=== PATIENT | female | born 1955 | race Caucasian/White ===

== ENCOUNTER 2017-11-22 15:20 | Emergency (ER) | payer OTHER ==
[~2017-11-22] VITALS: Ht 157.5 cm; Wt 58.1 kg
[~2017-11-22 15:20] MED LIST: ABILIFY 5 MG TAB5 M1; ABILIFY 5 MG TAB5 M1 PO; ABILIFY10 MG PO; ACETAMINOPHEN-1 EAC1 PO; ADDERALL 30 MG30 MG PO; ADVAIR 250-501 EACH; AFEDITAB CR60 M1 PO; ALENDRONATE SOD70 MG PO; AMBEREN; ANTIVERT25 MG PO; ASPIR 8181 M1 PO; ASPIR 8181 MG PO; ASPIRIN EC81 M1; AVELOX 400 MG400 MG PO; AZITHROMYCIN 2250 MG PO; BACTRIM DS TAB1 EACH PO; BACTROBAN CREAM30 G1 TOP; BACTROBAN22 GM TP; CALADRYL LOTIO180 ML TP; CALCIUM 500+D1 EAC2 PO; CALCIUM MAGNES1 EAC2 PO; CELEBREX 200 M200 M1 PO; CENTRUM SILVER1 EAC4 PO; CIPRO500 MG PO; CYMBALTA20 MG; CYMBALTA20 MG PO; CYMBALTA30 MG PO; CYMBALTA60 MG; DESYREL100 MG; DEXTROAMPHETAMIN5 M2 PO; DOXYCYCLINE 10100 MG PO; ERYTHROMYCIN E3.5 G1 OPHTHALMIC; FLAGYL500 MG PO; FLEXERIL PO; GABAPENTIN 100100 MG PO; GINKGO BILOBA120 MG; HYDROCODON-ACE1 EAC8 PO; HYDROXYZINE HCL25 M1 PO; HYDROXYZINE HCL25 M2 PO; LEVAQUIN 500 M500 M2 PO; LEXAPRO 10 MG T10 M1 PO; MEDROLDOSEPACK PO; MELATONIN3 MG PO; MOBIC7.5 M1 PO; MUCINEX600 MG PO; MYRBETRIQ50 MG PO; NAPROSYN500 MG PO; NASONEX17 GM; NEURONTIN 300M300 M2 PO; NORCO 5-325 TA1 EAC1 PO; NORCO 5-325 TA1 EACH PO; NORVASC5 MG PO; OMEPRAZOLE 20 M20 M1 PO; ONDANSETRON HCL4 M2 PO; PERCOCET 5-3251 EACH; PERCOCET 5-3251 EACH PO; PREDNISONE 10 M10 MG PO; PREDNISONE50 MG PO; PRILOSEC 20 MG20 MG PO; PRILOSEC40 MG; PROAIR HFA8.5 GM IH; PROAIR HFA8.5 GM INH; PROCARDIA XL60 MG PO; SINGULAIR 10 MG10 M1 PO; SODIUM CHLORIDE50 M3 IV; SPIRIVA INH; STRESS FORMULA1 EAC5 PO; SUPER B COMPLE1 EAC2 PO; TRAMADOL 50 MG50 MG PO; TRAZODONE HCL100 MG PO; VENTOLIN HFA INH8 GM; VITAMIN B-12250 MCG PO; VITAMIN B-12500 MCG PO; VITAMIN B122500 MCG PO; VITAMIN D-32000 UNIT; VITAMIN D3400 UNIT PO; WELCHOL 625 MG625 M1 PO; WELCHOL 625 MG625 MG PO; XANAX PO; XANAX1 MG PO; ZANTAC 150MG T150 M1; ZOFRAN4 MG PO; [UNRECOGNIZED DRUG - OTHER]
[2017-11-22 15:52] LABS: ABSOLUTE BASOPHILS 0.1 thou/uL (0.0-0.2); ABSOLUTE EOSINOPHILS 0.1 thou/uL (0.0-0.7); ABSOLUTE LYMPHOCYTES 3.3 thou/uL (0.8-5.3); ABSOLUTE MONOCYTES 0.6 thou/uL (0.0-1.2); ABSOLUTE NEUTROPHILS 7.1 thou/uL (1.6-8.1); BASOPHILS 0.6 %; HEMATOCRIT 42.2 % (37.0-47.0); LYMPHOCYTES 29.2 %; MCH 28.2 pg (26.0-34.0); MCHC 33.3 g/dL (28.0-37.0); MCV 84.7 fL (80.0-100.0); MONOCYTES 5.6 %; MPV 8.1 fl. (7.2-11.1); NUCLEATED RBCS 0 /100WBC; PLATELET COUNT* 452 thou/uL (150-400); POLYS 63.6 %; RBC 4.99 mil/uL (4.20-5.00); RDW-CV 15.4 % (10.5-14.5); WBC 11.1 thou/uL (4.0-11.0)
[2017-11-22 15:56] LABS: APTT 25.7 Seconds (25.0-31.3); PROTIME 10.1 Seconds (9.20-11.50)
[2017-11-22 16:10] LABS: ANION GAP 14 mmol/L (7-16); BUN 14 mg/dL (7-18); CALCIUM 9.3 mg/dL (8.5-10.1); CHLORIDE 101 mmol/L (98-107); CO2 26 mmol/L (21-32); CREATININE 1.3 mg/dL (0.6-1.3); GLUCOSE 91 mg/dL (70-99); POTASSIUM 3.8 mmol/L (3.5-5.1); SODIUM 141 mmol/L (136-145)
[2017-11-22 16:26] LABS: ALBUMIN 3.8 g/dL (3.4-5.0); ALKALINE PHOSPHATASE 100 U/L (46-116); CK-MB MASS 0.7 ng/mL (<0.5-3.6); LIPASE 226 U/L (73-393); MAGNESIUM 2.1 mg/dL (1.8-2.4); NT-PRO BRAIN NAT PEPTIDE 120 pg/mL (<300); SGOT 17 U/L (15-37); SGPT 23 U/L (30-65); TOTAL BILIRUBIN 0.3 mg/dL (<0.1-1.0); TOTAL PROTEIN 7.8 g/dL (6.4-8.2); TROPONIN-I LEVEL <0.06 ng/mL (<0.06)
[2017-11-22 18:28] VITALS: BP 136/57
--- NOTE | 2017-11-23 12:06 | EKG ---
[place] [address] ELECTROCARDIOGRAM REPORT Name: CARLSONFARSHAD SARA Room: [facility]#: [id number] Admission: 11/22/17 Attend Phys: Discharge: 11/22/17 Date of : 53 Report #: [id number] THIS REPORT FOR: //name// [facility] ED Test Date: 2017-11-22 Test Time: 15:26:21 Pat Name: FARSHAD CARLSON Department: Room: Gender: F Insulation Estimator: ANN MARIE : 1955 Requested By: Man Lee Order Number: [id number] MD: Rafael Mitchell Measurements Intervals [place] Rate: 58 P: 70 [place]: 150 QRS: 55 QRSD: 92 T: 55 QT: 417 QTc: 410 Interpretive Statements Sinus rhythm Anterior infarct, old Compared to ECG 03/30/2017 12:21:30 No significant changes Electronically Signed On 11-23-2017 12:06:24 CDT by Rafael Mitchell [email or web address] <ELECTRONICALLY SIGNED> By: Elena Mitchell MD, [facility] 11/23/17 1206 152 Elena Mitchell MD, [facility] /EPI
--- NOTE | 2017-11-23 12:07 | EKG ---
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: ANN MARIE : 1955 Requested By: Man Lee Order Number: [id number] MD: Rafael Mitchell Measurements Intervals [place] Rate: 76 P: 53 [place]: 163 QRS: 22 QRSD: 84 T: 56 QT: 387 QTc: 436 Interpretive Statements Sinus rhythm Probable anterior infarct, old Compared to ECG 03/30/2017 12:21:30 No significant changes Electronically Signed On 11-23-2017 12:07:20 CDT by Rafael Mitchell [email or web address] <ELECTRONICALLY SIGNED> By: Elena Mitchell MD, [facility] 11/23/17 1207 16 16 Elena Mitchell MD, [facility] /EPI
== END 2017-11-22 18:28 | disposition home or self-care (01) ==
LOC: M.ERS 15:20
PROVIDERS: Family Medicine
DX: R07.89 Other chest pain (principal); G89.29 Other chronic pain; M54.9 Dorsalgia, unspecified; J44.9 Chronic obstructive pulmonary disease, unspecified; K21.9 Gastro-esophageal reflux disease without esophagitis; M19.90 Unspecified osteoarthritis, unspecified site; I10 Essential (primary) hypertension; F31.9 Bipolar disorder, unspecified; M79.7 Fibromyalgia; F17.210 Nicotine dependence, cigarettes, uncomplicated; Z90.49 Acquired absence of other specified parts of digestive tract; Z88.1 Allergy status to other antibiotic agents; Z88.8 Allergy status to other drugs, medicaments and biological substances

== ENCOUNTER 2019-06-20 03:55 | Emergency (ER) | payer OTHER ==
[~2019-06-20] VITALS: Ht 157.5 cm; Wt 56.7 kg
[2019-06-20 04:33] LABS: URINE BILIRUBIN NEGATIVE (Negative); URINE BLOOD NEGATIVE (Negative); URINE CLARITY CLEAR; URINE COLOR YELLOW; URINE GLUCOSE-RANDOM NEGATIVE (Negative); URINE KETONES NEGATIVE (Negative); URINE LEUKOCYTES-REFLEX 1+ (Negative); URINE NITRITE-REFLEX NEGATIVE (Negative); URINE PROTEIN TRACE (Negative); URINE SPECIFIC GRAVITY 1.015 (1.005-1.030); URINE UROBILINOGEN 0.2 E.U./dl (0.2-1.0)
[2019-06-20 04:43] LABS: ABSOLUTE BASOPHILS 0.1 thou/uL (0.0-0.2); ABSOLUTE EOSINOPHILS 0.7 thou/uL (0.0-0.7); ABSOLUTE LYMPHOCYTES 2.3 thou/uL (0.8-5.3); ABSOLUTE MONOCYTES 0.6 thou/uL (0.0-1.2); ABSOLUTE NEUTROPHILS 5.9 thou/uL (1.6-8.1); BASOPHILS 0.6 %; EOSINOPHILS 7.4 %; HEMATOCRIT 34.7 % (37.0-47.0); HEMOGLOBIN 11.4 gm/dL (12.0-15.0); MCH 27.8 pg (26.0-34.0); MCHC 32.8 g/dL (28.0-37.0); MCV 84.9 fL (80.0-100.0); MONOCYTES 6.7 %; MPV 7.2 fl. (7.2-11.1); NUCLEATED RBCS 0 /100WBC; PLATELET COUNT* 337 thou/uL (150-400); POLYS 61.3 %; RBC 4.09 mil/uL (4.20-5.00); RDW-CV 16.6 % (10.5-14.5); WBC 9.7 thou/uL (4.0-11.0)
[2019-06-20 04:53] LABS: CALCIUM 8.5 mg/dL (8.5-10.1); CREATININE 1.2 mg/dL (0.6-1.3); POTASSIUM 4.1 mmol/L (3.5-5.1)
[2019-06-20 04:58] LABS: APTT 30.1 Seconds (25.0-31.3); PROTIME 10.5 Seconds (9.20-11.50)
[2019-06-20 04:58] LABS: BACTERIA-REFLEX >30 Many /HPF (None Seen); SQUAMOUS 0-3 Few /LPF (0-3); URINE RBC 3-10 Few /HPF (0-2); URINE WBC-REFLEX >25 Many /HPF (0-5); WBC CLUMPS Moderate (None Seen)
[2019-06-20 04:59] LABS: CRYSTALS None Seen /LPF (None Seen); FINE GRANULAR CASTS 0-3 Few /LPF (None Seen); HYALINE CASTS 0-3 Few /LPF (None Seen); MUCUS 4-6 Moderate strn/LPF (None Seen)
[2019-06-20 05:05] LABS: TOTAL BILIRUBIN 0.5 mg/dL (<0.1-1.0); TOTAL PROTEIN 7.2 g/dL (6.4-8.2)
[2019-06-20] MEDS ORDERED: MACROBID 100 M100 M1 PO (06:28)
[2019-06-20 06:35] VITALS: BP 122/54
--- NOTE | 2019-06-20 10:39 | EKG ---
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 : 1955 Requested By: Man Lee Order Number: [id number] MD: Deandre Dumont Measurements Intervals [place] Rate: 77 P: 62 [place]: 38 QRS: 12 QRSD: 93 T: 29 QT: 407 QTc: 461 Interpretive Statements Sinus rhythm Short [place] interval Anterior infarct, old Compared to ECG 11/22/2017 17:17:19 Short [place] interval now present Myocardial infarct finding still present Electronically Signed On 06-20-2019 10:38:47 SALES MANAGER by Deandre Dumont [email or web address] <ELECTRONICALLY SIGNED> By: Deandre Dumont MD, [facility] 06/20/19 1038 0411 0411 Deandre Dumont MD, FAC /EPI
== END 2019-06-20 06:35 | disposition home or self-care (01) ==
LOC: M.ERS 03:55
PROVIDERS: Family Medicine
DX: R53.1 Weakness (principal); N39.0 Urinary tract infection, site not specified; F17.210 Nicotine dependence, cigarettes, uncomplicated; G89.29 Other chronic pain; F12.10 Cannabis abuse, uncomplicated; J44.9 Chronic obstructive pulmonary disease, unspecified; M79.7 Fibromyalgia; F32.9 Major depressive disorder, single episode, unspecified; R73.9 Hyperglycemia, unspecified; I10 Essential (primary) hypertension; M19.90 Unspecified osteoarthritis, unspecified site; I95.9 Hypotension, unspecified; Z88.1 Allergy status to other antibiotic agents; Z88.8 Allergy status to other drugs, medicaments and biological substances; Z90.49 Acquired absence of other specified parts of digestive tract; Z79.899 Other long term (current) drug therapy; Z91.81 History of falling

== ENCOUNTER 2019-06-21 16:45 | Emergency (ER) | payer OTHER ==
[~2019-06-21] VITALS: Ht 157.5 cm; Wt 56.7 kg
[~2019-06-21 16:45] MED LIST changes: +MACROBID 100 M100 M1 PO
[2019-06-21 17:40] LABS: ABSOLUTE BASOPHILS 0.1 thou/uL (0.0-0.2); ABSOLUTE EOSINOPHILS 0.6 thou/uL (0.0-0.7); ABSOLUTE LYMPHOCYTES 2.3 thou/uL (0.8-5.3); ABSOLUTE MONOCYTES 0.7 thou/uL (0.0-1.2); ABSOLUTE NEUTROPHILS 5.5 thou/uL (1.6-8.1); BASOPHILS 0.8 %; EOSINOPHILS 6.1 %; HEMATOCRIT 32.4 % (37.0-47.0); HEMOGLOBIN 10.9 gm/dL (12.0-15.0); LYMPHOCYTES 24.8 %; MCH 28.3 pg (26.0-34.0); MCHC 33.5 g/dL (28.0-37.0); MCV 84.5 fL (80.0-100.0); MONOCYTES 7.8 %; MPV 7.3 fl. (7.2-11.1); NUCLEATED RBCS 0 /100WBC; PLATELET COUNT* 296 thou/uL (150-400); POLYS 60.5 %; RBC 3.84 mil/uL (4.20-5.00); RDW-CV 16.1 % (10.5-14.5); WBC 9.1 thou/uL (4.0-11.0)
[2019-06-21 17:49] LABS: CREATININE 1.2 mg/dL (0.6-1.3); POTASSIUM 3.6 mmol/L (3.5-5.1)
[2019-06-21 17:53] LABS: ALBUMIN 3.7 g/dL (3.4-5.0); TOTAL BILIRUBIN 0.5 mg/dL (<0.1-1.0); TOTAL PROTEIN 7.5 g/dL (6.4-8.2)
[2019-06-21 19:12] LABS: URINE BILIRUBIN NEGATIVE (Negative); URINE BLOOD NEGATIVE (Negative); URINE CLARITY CLEAR; URINE COLOR YELLOW; URINE GLUCOSE-RANDOM NEGATIVE (Negative); URINE KETONES NEGATIVE (Negative); URINE LEUKOCYTES-REFLEX TRACE (Negative); URINE NITRITE-REFLEX NEGATIVE (Negative); URINE PROTEIN TRACE (Negative); URINE SPECIFIC GRAVITY >= 1.030 (1.005-1.030); URINE UROBILINOGEN 0.2 E.U./dl (0.2-1.0)
[2019-06-21 19:24] LABS: SQUAMOUS 0-3 Few /LPF (0-3); URINE RBC 0-2 Rare /HPF (0-2); URINE WBC-REFLEX 0-5 Rare /HPF (0-5)
[2019-06-21 19:25] LABS: CASTS None Seen /LPF (None Seen); CRYSTALS None Seen /LPF (None Seen); MUCUS 0-3 Light strn/LPF (None Seen)
[2019-06-21 19:55] VITALS: BP 120/55
--- NOTE | 2019-06-22 11:01 | EKG ---
[place] [address] ELECTROCARDIOGRAM REPORT Name: CARLSONFARSHAD SARA Room: [facility] [place]#: [id number] Admission: 06/21/19 Attend Phys: Discharge: 06/21/19 Date of : 53 Report #: [id number] THIS REPORT FOR: //name// [facility] ED Test Date: 2019-06-21 Test Time: 17:32:46 Pat Name: FARSHAD CARLSON Department: Room: Gender: F Batteryman: DARIAN : 1955 Requested By: Johnna Curtis Order Number: [id number] MD: Sushil Huertas Measurements Intervals [place] Rate: 64 P: 24 [place]: 169 QRS: 28 QRSD: 92 T: 41 QT: 409 QTc: 422 Interpretive Statements Sinus rhythm Anterior infarct, old Compared to ECG 06/20/2019 04:11:32 Short [place] interval no longer present Myocardial infarct finding still present Electronically Signed On 06-22-2019 11:01:25 SOLAR TECH by Sushil Huertas [email or web address] <ELECTRONICALLY SIGNED> By: Sushil Huertas MD, [facility] 06/22/19 1101 1732 173 Sushil Huertas MD, FAC /EPI
== END 2019-06-21 19:59 | disposition home or self-care (01) ==
LOC: M.ERS 16:45
PROVIDERS: Physician Assistant
DX: S40.021A Contusion of right upper arm, initial encounter (principal); S09.8XXA Other specified injuries of head, initial encounter; R55 Syncope and collapse; M54.2 Cervicalgia; J44.9 Chronic obstructive pulmonary disease, unspecified; M79.7 Fibromyalgia; K21.9 Gastro-esophageal reflux disease without esophagitis; M19.90 Unspecified osteoarthritis, unspecified site; I10 Essential (primary) hypertension; G89.29 Other chronic pain; F31.9 Bipolar disorder, unspecified; F17.210 Nicotine dependence, cigarettes, uncomplicated; Z88.1 Allergy status to other antibiotic agents; Z88.6 Allergy status to analgesic agent; Z88.8 Allergy status to other drugs, medicaments and biological substances; Z90.711 Acquired absence of uterus with remaining cervical stump; W18.39XA Other fall on same level, initial encounter; Y93.89 Activity, other specified; Y92.89 Other specified places as the place of occurrence of the external cause; Y99.8 Other external cause status